=== PATIENT | male | born 1985 | race African-American/Black ===

== ENCOUNTER 2019-10-19 05:06 | Inpatient (IN) | payer OTHER ==
[~2019-10-19] VITALS: Ht 182.9 cm; Wt 86.2 kg
[~2019-10-19 05:06] MED LIST: BACTRIM DS TAB1 EACH PO; NORCO 5-325 TA1 EACH PO
[2019-10-19 05:08] VITALS: BP 144/81
[2019-10-19 05:55] LABS: HEMOGLOBIN 14.3 gm/dL (14.0-18.0); MCH 29.3 pg (26.0-34.0); MCHC 32.5 g/dL (28.0-37.0); MCV 90.3 fL (80.0-100.0); PLATELET COUNT 250 thou/uL (150-400); RBC 4.88 mil/uL (4.50-6.00); WBC 8.5 thou/uL (4.0-11.0)
[2019-10-19 06:07] LABS: CALCIUM 9.3 mg/dL (8.5-10.1); POTASSIUM 3.1 mmol/L (3.5-5.1)
[2019-10-19 06:42] LABS: BE(vivo) -10.8 mmol/L (-2 to +3); HCO3 16.3 mmol/L (22.0-26.0); PCO2 VENOUS 40.8 mmHg (41.0-51.0); PO2 VENOUS 49.3 mmHg (35.0-45.0)
[2019-10-19 07:02] LABS: URINE BILIRUBIN NEGATIVE (Negative); URINE BLOOD TRACE (Negative); URINE CLARITY CLEAR; URINE COLOR YELLOW; URINE GLUCOSE-RANDOM* NEGATIVE (Negative); URINE KETONES 1+ (Negative); URINE LEUKOCYTES-REFLEX NEGATIVE (Negative); URINE NITRITE-REFLEX NEGATIVE (Negative); URINE PROTEIN (DIPSTICK) NEGATIVE (Negative); URINE UROBILINOGEN 0.2 E.U./dl (0.2-1.0)
[2019-10-19 07:25] LABS: AMP/METHAMP Negative (Negative); BARBITURATES Negative (Negative); BENZODIAZEPINES Negative (Negative); COCAINE Negative (Negative); METHADONE Negative (Negative); OPIATES Negative (Negative); PCP Negative (Negative)
[2019-10-19 07:41] LABS: DIRECT BILIRUBIN < 0.1 mg/dL (<0.1-0.3); SGOT 42 U/L (15-37); SGPT 36 U/L (30-65); TOTAL BILIRUBIN 0.2 mg/dL (<0.1-1.0); TOTAL PROTEIN 7.7 g/dL (6.4-8.2)
[2019-10-19 07:58] LABS: APTT 22.2 Seconds (24.5-32.8)
[2019-10-19 08:09] LABS: ABSOLUTE NEUTROPHILS 3.1 thou/uL (1.4-8.2)
[2019-10-19 08:10] LABS: ANISOCYTOSIS 1+; ATYPICAL LYMPHS 5 %
[2019-10-19 08:36] VITALS: BP 105/67
[2019-10-19 09:00] VITALS: BP 149/83
[2019-10-19 15:00] VITALS: BP 143/89
--- NOTE | 2019-10-19 17:02 | NUR ---
Patient arrived on unit at approximately 0845. Vital signs have been stable. He has Normal Saline Running at 125cc/hr and Dextrose 50cc per hour to stabilize blood sugar. Patient has been drinking plenty of fluids and has a good appetite. No signs or symptoms of Alcohol withdrawel. Patient has been pleasant and cooperative. He is up ad kyree. alert and oriented times 4. Will continue to monitor and report to on-coming nurse.
[2019-10-19 22:00] VITALS: BP 143/89
--- NOTE | 2019-10-20 03:44 | NUR ---
ASSUMED PATIENT CARE AT APPROX 2145. ASSESSMENT CHARTED. PT IS A&OX4 AND ARRIVED EARLIER FOR HYPOGLYCEMIA. SO FAR HIS FSBS RESULTS ARE STABLE. PT HAS BEEN RECIEVING 10% DEXTROSE. PATIENT GETS UP INDEPENDENTLY AND IS EATING WELL. FAMILY MEMBER BROUGHT DINNER FOR HIM. PATIENT SHOWERED EARLIER AND IV WAS DISLODGED. NEW IV ATTEMPTED ON R HAND BUT DOES NOT APPEAR FUNCTIONAL. PATIENT WILL SLEEP AND HAVE NEW IV REINSERTED IN AM. PATIENT VOICES NO OTHER CONCERNS AT THIS TIME. FAMILY AT BEDSIDE. WILL CONTINUE TO MONITOR AND FOLLOW POC
[2019-10-20 08:07] VITALS: BP 151/107
[2019-10-20 10:20] VITALS: BP 145/93
[2019-10-20] MEDS ORDERED: NORVASC 2.5 MG2.5 M1 PO (12:49)
[2019-10-20 13:21] VITALS: BP 145/93
[2019-10-20 13:26] VITALS: BP 145/93
--- NOTE | 2019-10-20 14:03 | NUR ---
Did D/C for patient and administered new script of Amlodipine to Pt. Provided written script for Pt and D/C IV as well as educate on new medication and compliance, as well as managing blood sugar.
--- NOTE | 2019-10-20 16:12 | NUR ---
PT ADMITTED RELATED TO Hypoglycemia, Lactic Acidosis. CM REVIWEED CHART AND SPOKE WITH CARE TEAM. PT LIVED IN [place] WITH GF. 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 PT INDICATED HE HAD [employer] INSURANCE AND THAT HE HAD BEEN GIVEN A FORM TO SUBMIT INSURANCE TO THE HOSPITAL WITHIN 10 DAYS. PT INDICATED HE DIDN'T ANTICIPATE ANY NEEDS UPON DC. CARE TEAM INDICATED PT IS DC HOME NO NEEDS TODAY. CASE CLOSED.
== END 2019-10-20 14:11 | disposition home or self-care (01) | DRG 642 ==
LOC: ER 05:06 → EROBS 07:48 → 4W 07:48
PROVIDERS: Emergency Medicine; ADMIT Hospitalist
DX: E88.89 Other specified metabolic disorders (principal); F10.20 Alcohol dependence, uncomplicated; I10 Essential (primary) hypertension; Z87.891 Personal history of nicotine dependence; Z28.21 Immunization not carried out because of patient refusal
CPT/HCPCS: 10040

== ENCOUNTER 2021-10-08 11:27 | Emergency (ER) | payer OTHER ==
[~2021-10-08] VITALS: Ht 182.9 cm; Wt 90.7 kg
[~2021-10-08 11:27] MED LIST changes: +NORVASC 2.5 MG2.5 M1 PO
[2021-10-08 11:33] VITALS: BP 145/103
== END 2021-10-08 12:53 | disposition home or self-care (01) ==
LOC: ER 11:27
DX: J02.9 Acute pharyngitis, unspecified (principal); Z90.49 Acquired absence of other specified parts of digestive tract; Z79.899 Other long term (current) drug therapy; Z87.891 Personal history of nicotine dependence